=== PATIENT | female | born 1960 | race Caucasian/White ===

== ENCOUNTER → 2019-04-20 | Outpatient (CLI) | payer OTHER, SELFPAY ==
--- NOTE | 2019-04-20 16:54 | RAD_ITS ---
STUDY: X-RAY - LUMBAR SPINE REASON FOR EXAM: Female, 59 years old. Left-sided back pain. TECHNIQUE: 2 view(s) of the lumbar spine were obtained. COMPARISON: None FINDINGS: Normal lumbar lordosis. There is mild scoliosis, convexity to There is a normal alignment of the vertebrae. There is multilevel endplate spondylosis of the lumbar vertebrae. There is multi-level degenerative disc disease with multi-level disc space narrowing. There is no demonstrated fracture. 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 The soft tissue structures are unremarkable. RAD/Lumbar Spine 2 or 3 Views IMPRESSION: Multilevel spondylosis/degenerative disease with no acute fracture or spondylolisthesis. Electronically Signed: Jenny Chandra MD at 6:38 EDT , Service support ,
== END | disposition home or self-care (01) ==
LOC: RAD 16:49
PROVIDERS: Family Provider Family Medicine; PCP Family Medicine; Referring Provider Anesthesiology Pain Medicine; Visit Provider Anesthesiology Pain Medicine
DX: M54.5 Low back pain (principal)
CPT/HCPCS: 72100

== ENCOUNTER 2019-05-21 10:31 | Emergency (ER) | payer OTHER, SELFPAY ==
[2019-05-21 10:34] VITALS: BP 158/85; PULSE 66; RESP 18; TEMP 36.9; O2SAT 100; BMI 20.3
--- NOTE | 2019-05-21 10:41 | ED.VIS.GEN ---
History of Present Illness Chief Complaint: Headache Informant: Patient Onset: Days Context: Gradual Onset Timing: Continuous Current Severity: Moderate Maximum Severity: Moderate Narrative: The patient is a 59-year-old female with history of migraine who presents to the emergency department migraine headache. Patient states over the past 4 days, she has had a dull persistent headache. She states it started slowly and then has increased in intensity. She states it feels like her normal migraines. She is having photophobia, nausea, and vomiting. She denies any fever. She denies any trauma or weakness. She is not found anything that improves her symptoms. Prior similar symptoms: Yes Recent Illness/Hospitalization: No Past Medical History - Allergies and Home Meds Allergies/Adverse Reactions: Allergies No Known Allergies Allergy (Verified 05/21/19 10:32) Primary Care Physician: Jacki Strong MD [Primary Care Provider] - Prior records reviewed: Yes Past Medical History: - Smoking Status: Never smoker Review of Systems ROS: - Migraine headache General: Denies: Chills, Fever, Sweats Eyes: Denies: Visual changes - bilaterally, Diplopia ENT: Denies: Rhinorrhea, Sore throat Cardiovascular: Denies: Chest pain, Palpitations Respiratory: Denies: Dyspnea, Cough, Dyspnea on exertion Gastrointestinal: Reports: Nausea, Vomiting. Denies: Abdominal pain, Diarrhea, Melena, Hematochezia Genitourinary: Denies: Dysuria, Hematuria, Frequency Musculoskeletal: Denies: Back pain, Extremity Pain Skin: Denies: Rash, Wounds Neurological: Reports: Headache. Denies: Weakness, Numbness Physical Exam Vital Signs/Narrative: Vital Signs Temp Pulse Resp BP Pulse Ox 05/21/19 10:34 98.5 F 66 18 158/85 H 100 Inital Vital Signs reviewed: Yes General: Well nourished, Well developed, No Acute Distress Head: Normocephalic, Atraumatic Eyes: Perrl, EOMI ENT: Moist mucous membranes, No rhinorrhea Neck: Supple, Nontender Cardiovascular: Regular rate, Regular rhythm, No murmurs Respiratory: No distress, CTA bilaterally, Chest nontender Abdomen: Soft, Nontender, Nondistended, Normal bowel sounds Back: Nontender, Normal Inspection Extremities: Nontender, No edema Skin: Normal color, No rash Neurological: Alert, Oriented x3, Cranial nerves II-XII grossly intact, Normal Strength, Normal Sensation Psychological: Normal affect, Normal Mood Diagnostic/Tx/Re-eval - Medical Decision Making The patient presents to the emergency department with migraine. She is not encephalopathic or meningitic. The headache was gradual in onset. She is been photophobic. The patient has a reassuring neurologic examination. She was treated with migraine abortive medications with marked improvement. At this point, I do not feel that imaging is necessary. I do feel that she is safe for outpatient therapy. The patient is comfortable with this plan of care and she will be discharged home. Impression 1. Migraine headache ED Disposition - Plan for ED Patient: Instructions: ED, Migraine (Classical) Referrals: Jacki Strong MD [Primary Care Provider] -
[2019-05-21] MEDS: 0.9% Normal Saline 1,000 ML 999 ML IV (10:53)
[2019-05-21] MEDS: Ketorolac 30 MG/ML Syringe IV (10:55)
[2019-05-21] MEDS: proCHLORPERazine 10 MG/2 ML Vial IV (10:57)
[2019-05-21] MEDS: DiphenhydrAMINE 50 MG/ML Syringe IV (10:57)
[2019-05-21 12:06] VITALS: BP 147/85; PULSE 68; RESP 16; O2SAT 98
--- NOTE | 2019-05-21 12:08 | ED.RN ---
REVIEWED D/C INSTRUCTIONS, FOLLOW UP CARE, AND S/S THAT WOULD WARRANT A RETURN TO THE ED WITH PT. PT VERBALIZED AN UNDERSTANDING AND DENIES FURTHER QUESTIONS FOR THIS RN. PT SKIN P/W/D, RESP EVEN AND AND UNLABORED, PT A&O X 3, NO DISTRESS NOTED. PT AMBULATED OUT OF ED, GAIT STEADY.
== END 2019-05-21 12:09 | disposition home or self-care (01) ==
LOC: ED 11:03
PROVIDERS: Emergency Provider Emergency Medicine; Family Provider Family Medicine; PCP Family Medicine
DX: G43.909 Migraine, unspecified, not intractable, without status migrainosus (principal)
CPT/HCPCS: 96361; 96374; 96375; 99283; J7030; A4216